=== PATIENT | female | born 1995 | race Caucasian/White ===

== ENCOUNTER 2017-10-19 19:02 | Emergency (ER) | payer MEDICAID ==
[2017-10-19] MEDS ORDERED: NS 1,000 ML IV ONE (19:28)
[2017-10-19 20:00] LABS: % IMMATURE GRANULYOCYTES 0.4 % (0.0-1.1); ABSOLUTE IMMATURE GRANULOCYTES 0.04 10^3/uL (0.00-0.10); ADD DIFF? NO; ADD MORPH? NO; ADD SCAN? NO; ATYPICAL LYMPHOCYTE FLAG 10 (0-99); FRAGMENT RBC FLAG 0 (0-99); HEMATOCRIT 39.3 % (38.0-47.0); HEMOGLOBIN 13.5 g/dL (12.6-16.3); LEFT SHIFT FLG 0 (0-99); LIPEMIA HEMOLYSIS FLAG 90 (0-99); MEAN CELL HEMOGLOBIN 30.8 pg (27.9-34.1); MEAN CELL HEMOGLOBIN CONCENTR. 34.4 g/dL (32.4-36.7); MEAN CELL VOLUME 89.5 fL (81.5-99.8); MEAN PLATELET VOLUME 10.4 fL (8.7-11.7); PLATELET CLUMPS FLAG 0 (0-99); PLATELET COUNT 246 10^3/uL (150-400); RED BLOOD CELL COUNT 4.39 10^6/uL (4.18-5.33); RED CELL DISTRIBUTION WIDTH 12.5 % (11.5-15.2)
[2017-10-19 20:17] LABS: ANION GAP 12 mEq/L (8-16); CALCIUM 9.6 mg/dL (8.5-10.4); CARBON DIOXIDE 26 mEq/l (22-31); CHLORIDE 101 mEq/L (97-110); CREATININE 0.9 mg/dL (0.6-1.0); GLOMERULAR FILTRATION RATE > 60; GLUCOSE 94 mg/dL (70-100); POTASSIUM 4.1 mEq/L (3.5-5.2); SODIUM 139 mEq/L (134-144)
--- NOTE | 2017-10-19 20:41 | CPEKG ---
Heart Rate: 79 RR Interval: 759 P-R Interval: 160 QRSD Interval: 96 QT Interval: 404 QTC Interval: 464 P [place]: 18 QRS [place]: 80 T Wave [place]: -17 EKG Severity - BORDERLINE ECG - EKG Impression: SINUS RHYTHM EKG Impression: BORDERLINE T ABNORMALITIES, INFERIOR LEADS Electronically Signed By: Gary Putnam 21-Oct-2017 05:33:28
[2017-10-19] MEDS ORDERED: BENZONATATE 100 MG CAP PO ONE (21:02)
[2017-10-19] MEDS ORDERED: AZITHROMYCIN 250 MG TAB PO ONE (21:02)
--- NOTE | 2017-10-19 21:06 | EDPHY ---
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 She reports body aches, dry cough, sore throat and fatigue. She has no history of lung disease. She has been eating and drinking normally. She does note that last weekend she accidentally tripped and had her head tub. She was ambulatory at the scene and divide any LOC. She denies neck pain. She does report a mild headache but it waxes and wanes and is not the worst of her life. She denies any chest pain , shortness of breath, palpitations. Modifying Factors: [id number] remedies without relief Comment: ROS: see HPI Constitutional: No fever, no chills, no weight loss Eyes: No blurred vision Respiratory: No shortness of breath, no cough Cardiovascular: No chest pain Gastrointestinal: No nausea, no vomiting, no diarrhea Genitourinary: No dysuria Extremities: No myalgias Neurologic: No weakness, no numbness Skin: No rashes Hematologic: No bruising, no bleeding MEDICAL/SURGICAL/SOCIAL HISTORY: Medical history:endocarditis Surgical history: heart valvuloplasty in 2005 Social history: Employed as a school operations manager. CONSTITUTIONAL: Pleasant well-appearing young adult white female, awake and alert, no obvious distress HEENT: Atraumatic and normocephalic, PERRL, EOMI. Tympanic membranes clear. Oropharynx clear, no exudate and moist pink mucosa. Airway patent. No lymphadenopathy. No meningismus. Cardiovascular: Normal S1/S2, regular rate, regular rhythm, with systolic 4/6 murmur. no rub or gallop. PULMONARY/CHEST: Symmetrical and nontender. Clear to auscultation bilaterally. Good air movement. No accessory muscle usage. ABDOMEN: Soft, nondistended, nontender, no rebound, no guarding, no peritoneal signs, no masses or organomegaly. No CVAT. EXTREMITIES: 2/2 pulses, strength 5/5, no deformities, no clubbing, no cyanosis or edema. NEUROLOGICAL: no focal neuro deficits. GCS 15. SKIN: Warm and dry, no erythema. no rash. Good capillary refill. Source: Patient Exam Limitations: No limitations - Personal History LMP (Females 10-55): 8-14 Days Ago Current Tetanus/Diphtheria Vaccine: Yes Current Tetanus Diphtheria and Acellular Pertussis (TDAP): Yes - Medical/Surgical History Hx Asthma: No Hx Chronic Respiratory Disease: No Hx Diabetes: No Hx Cardiac Disease: No Hx Renal Disease: No Hx Cirrhosis: No Hx Alcoholism: No Hx HIV/AIDS: No Hx Splenectomy or Spleen Trauma: No Other PMH: heart valvuloplasty in 2005. endocarditis - Social History Smoking Status: Current some day smoker Constitutional: Initial Vital Signs Temperature (C) 37 C 10/19/17 19:10 Heart Rate 90 10/19/17 19:10 Respiratory Rate 18 10/19/17 19:10 Blood Pressure 124/66 H 10/19/17 19:10 O2 Sat (%) 97 10/19/17 19:10 O2 Delivery Mode Room Air Allergies/Adverse Reactions: benzoyl peroxide Allergy (Verified 10/19/17 19:09) Home Medications: Medication Instructions Recorded ACCUTANE 10/19/17 AZITHROMYCIN [Z-PACK] 250 mg PO DAILY #6 tab 10/19/17 Benzonatate [Tessalon Pearles (RX)] 100 mg PO Q6 PRN #20 cap 10/19/17 Cyclobenzaprine 10Mg Prepack#3 1 btl TAKEHOME Q8 PRN #1 btl 10/19/17 [Flexeril 10 mg Prepack#3] Medical Decision Making ED Course/Re-evaluation: Labs, IV fluids, oral medications ordered Given 1 L normal saline, Tessalon Perles Afebrile and no signs of sepsis No hypoxia/respiratory distress/wheezing. Patient was offered a chest x-ray and she politely declined due to concerns of radiation. Labs reviewed and show minimal leukocytosis. Influenza and strep are negative. Due to symptoms persisting greater than 10 days; started on antibiotic. Differential Diagnosis: Differential diagnosis includes but is not limited to upper respiratory infection, bronchitis, pneumonia, sepsis, influenza, viral syndrome. - Data Points Laboratory Results: Laboratory Results 10/19/17 19:47 10/19/17 19:47 10/19/17 10/19/17 10/19/17 Unknown 19:47 19:47 WBC RBC Hgb Hct MCV MCH MCHC RDW Plt Count MPV Neut % (Auto) Lymph % (Auto) [place] % (Auto) Eos % (Auto) Baso % (Auto) Nucleat RBC Rel Count Absolute Neuts (auto) Absolute Lymphs (auto) Absolute Monos (auto) Absolute Eos (auto) Absolute Basos (auto) Absolute Nucleated RBC Immature Gran % Immature Gran # Sodium 139 mEq/L mEq/L (134-144) Potassium 4.1 mEq/L mEq/L (3.5-5.2) Chloride 101 mEq/L mEq/L (97-110) Carbon Dioxide 26 mEq/l mEq/l (22-31) Anion Gap 12 mEq/L mEq/L (8-16) BUN 13 mg/dL mg/dL (7-23) Creatinine 0.9 mg/dL mg/dL (0.6-1.0) Estimated GFR > 60 Glucose 94 mg/dL mg/dL (70-100) Calcium 9.6 mg/dL mg/dL (8.5-10.4) Beta HCG, Qual NEGATIVE Nasal Influenza A PCR Nasal Influenza B PCR Group A Strep Screen Group A Strep DNA Pending 10/19/17 10/19/17 10/19/17 19:47 19:47 19:36 WBC 10.02 10^3/uL H 10^3/uL (3.80-9.50) RBC 4.39 10^6/uL 10^6/uL (4.18-5.33) Hgb 13.5 g/dL g/dL (12.6-16.3) Hct 39.3 % % (38.0-47.0) MCV 89.5 fL fL (81.5-99.8) MCH 30.8 pg pg (27.9-34.1) MCHC 34.4 g/dL g/dL (32.4-36.7) RDW 12.5 % % (11.5-15.2) Plt Count 246 10^3/uL 10^3/uL (150-400) MPV 10.4 fL fL (8.7-11.7) Neut % (Auto) 79.2 % H % (39.3-74.2) Lymph % (Auto) 9.7 % L % (15.0-45.0) [place] % (Auto) 8.5 % % (4.5-13.0) Eos % (Auto) 1.8 % % (0.6-7.6) Baso % (Auto) 0.4 % % (0.3-1.7) Nucleat RBC Rel Count 0.0 % % (0.0-0.2) Absolute Neuts (auto) 7.94 10^3/uL H 10^3/uL (1.70-6.50) Absolute Lymphs (auto) 0.97 10^3/uL L 10^3/uL (1.00-3.00) Absolute Monos (auto) 0.85 10^3/uL H 10^3/uL (0.30-0.80) Absolute Eos (auto) 0.18 10^3/uL 10^3/uL (0.03-0.40) Absolute Basos (auto) 0.04 10^3/uL 10^3/uL (0.02-0.10) Absolute Nucleated RBC 0.00 10^3/uL 10^3/uL (0-0.01) Immature Gran % 0.4 % % (0.0-1.1) Immature Gran # 0.04 10^3/uL 10^3/uL (0.00-0.10) Sodium Potassium Chloride Carbon Dioxide Anion Gap BUN Creatinine Estimated GFR Glucose Calcium Beta HCG, Qual Nasal Influenza A PCR NEGATIVE FOR FLU A (NEGATIVE) Nasal Influenza B PCR NEGATIVE FOR FLU B (NEGATIVE) Group A Strep Screen NEGATIVE (NEGATIVE) Group A Strep DNA Medications Given: Discontinued Medications Sodium Chloride (Ns) 1,000 mls @ 0 mls/hr IV EDNOW ONE; Wide Open PRN Reason: Protocol Stop: 10/19/17 19:29 Last Admin: 10/19/17 19:49 Dose: 1,000 mls Departure - Departure Disposition: Home, Routine, Self-Care Clinical Impression: Bronchitis Condition: Good Instructions: Acute Bronchitis (ED) Additional Instructions: Please take all of the antibiotic until complete. Use Tessalon Perles every 6 hr as needed for your cough. You may use Flexeril 3 times a day as needed for muscle spasm. Drink plenty of fluids and rest as much as possible. Referrals: SE ANGUIANO [Other] - As per Instructions Prescriptions: AZITHROMYCIN [Z-PACK] 250 mg PO DAILY #6 tab Benzonatate [Tessalon Pearles (RX)] 100 mg PO Q6 PRN #20 cap PRN Reason: Cough, Moderate Cyclobenzaprine 10Mg Prepack#3 [Flexeril 10 mg Prepack#3] 1 btl TAKEHOME Q8 PRN #1 btl PRN Reason: Spasms
[2017-10-19] MEDS ORDERED: CYCLOBENZAPRINE 10MG PREPACK#3 BTL TAKEHOME ONE (21:09)
[2017-10-19 21:33] VITALS: BP 127/82; PULSE 76; RESP 17; TEMP 98.2; O2SAT 98
== END 2017-10-19 21:30 | disposition home or self-care (01) ==
DX: J20.9 Acute bronchitis, unspecified (principal); E86.9 Volume depletion, unspecified; F17.200 Nicotine dependence, unspecified, uncomplicated

== ENCOUNTER 2018-12-19 19:14 | Emergency (ER) | payer MEDICAID ==
--- NOTE | 2018-12-19 19:32 | EDPHY ---
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 endocarditis. heart murmur - Social History Smoking Status: Never smoked Constitutional: Initial Vital Signs Temperature (C) 36.7 C 12/19/18 19:18 Heart Rate 106 H 12/19/18 19:18 Respiratory Rate 16 12/19/18 19:18 Blood Pressure 115/72 12/19/18 19:18 O2 Sat (%) 98 12/19/18 19:18 O2 Delivery Mode Room Air Allergies/Adverse Reactions: benzoyl peroxide Allergy (Verified 07/04/18 22:17) Home Medications: Medication Instructions Recorded ACCUTANE 10/19/17 Iud 07/04/18 Omeprazole 20 mg PO DAILY #30 capsule. 07/04/18 Aspirin 81mg (*) 12/19/18 Enalapril Maleate 12/19/18 Warfarin Sodium 12/19/18 Medical Decision Making ED Course/Re-evaluation: CHIEF COMPLAINT: Back pain HISTORY OF PRESENT ILLNESS: The patient is an anticoagulated (Warfarin) 23 y/o female with a history of aortic valve replacement (11/22/18), aortic stent (12/12/18), and endocarditis complaining of feeling dizzy, nauseous, and short of breath since arriving back in [place]. 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 On 11/22/17 she had an [place] surgery at [facility] which involved harvesting tissue from her pericardium to make an aortic valve replacement. They did this procedure as her watch commander became concerned that she would develop cardiomegaly. On 12/12/18 she had an aortic stent placed as she had a high pressure gradient. Immediately after the procedure on 12/12 she developed a left back point tenderness. Her physicians did an x-ray and had no significant findings. She did not have any CT findings. They thought the pain as due to the where the stent was placed. This pain is most prominent at night or while walking. She returned home and started to feel nauseous, dizzy, and winded. Around one week ago she started taking Enalapril for her blood pressure. Last night she developed a rash on her chest and back. Due to the combination of symptoms she decided to present to her emergency department. No fever, chest pain, abdominal pain, urinary or bowel complaints, numbness, paresthesias. REVIEW OF SYSTEMS: A comprehensive 10 system review of systems is otherwise negative aside from elements mentioned in the history of present illness and medical decision making. PHYSICAL EXAM: HR, BP, O2 Sat, RR. Temp noted General Appearance: Alert, well hydrated, appropriate, and non-toxic appearing. Head: Atraumatic without scalp tenderness or obvious injury Eyes: Pupils equal, round, reactive to light and accommodation, EOMI, no trauma , no injection. Ears: Clear bilaterally, no perforation, normal landmarks Nose: Atraumatic, no rhinorrhea, clear. Throat: There is no erythema or exudates, no lesions, normal tonsils, mucus membranes moist. Neck: Supple, 2+ carotid upstroke, nontender, no lymphadenopathy. Respiratory: No retractions, no distress, no wheezes, and no accessory muscle use. Lungs are clear to auscultation bilaterally. Cardiovascular: Regular rate and rhythm, no murmurs, rubs, or gallops. Bilateral carotid, radial, dorsalis pedis, and posterior tibial pulses intact. Good capillary refill all extremities. Gastrointestinal: Abdomen is soft, nontender, non-distended, no masses, no rebound, no guarding, no peritoneal signs. Musculoskeletal: Normal active ROM of all extremities, atraumatic. Neurological: Alert, appropriate, and interactive. The patient has normal DTRs and non-focal cranial nerves, motor, sensory, and cerebellar exam. Skin: Macular rash on trunk, good turgor, no nodules on palpation. Past medical history: Endocarditis Past surgical history: Aortic valve replacement (11/22/18), aortic stent () Family history: Denies Social history: Friend at bedside, lives in [place], employed at [employer] DIAGNOSTICS/PROCEDURES/CRITICAL CARE TIME: EKG: The 12 lead EKG was interpreted by myself as sinus rhythm with a rate of 96 , abnormal T wave. See hard copy and/or "tracemaster" electronic copy for interpretation. Chest CTA: No acute findings DIFFERENTIAL DIAGNOSIS: The differential diagnosis for the patient's back pain included but was not limited to musculoskeletal pain, epidural abscess, herniated disk, spinal fracture, and intra-abdominal causes including urinary system. MEDICAL DECISION MAKING: The patient is an anticoagulated (Warfarin) 23 y/o female with a history of aortic valve replacement (11/22/18), aortic stent (12/12/18), and endocarditis presenting with feeling dizzy, nauseous, and short of breath since arriving back in [place]. I am unable to reproduce her left thoracic back pain. She does have a macular rash on her trunk. Due to her extensive cardiac history labs , EKG and chest CTA ordered. 1928: I interpreted patient's EKG as sinus rhythm with a rate of 96, abnormal T wave. 2001: Patient is subtherapeutic on her Warfarin. She has a normal creatinine and is not ; okay to proceed with chest CTA. 2044: I spoke with the radiologist who reports that the chest CTA is unremarkable. 2047: Reassessed patient and discussed laboratory and imaging studies. I have advised her to call her physician with regards to tonight's visit as well as her rash. Return precautions provided; patient is comfortable with this plan. - Data Points Laboratory Results: Laboratory Results 12/19/18 19:38 12/19/18 19:38 12/19/18 12/19/18 12/19/18 19:38 19:38 19:38 WBC RBC Hgb Hct MCV MCH MCHC RDW Plt Count MPV Neut % (Auto) Lymph % (Auto) [place] % (Auto) Eos % (Auto) Baso % (Auto) Nucleat RBC Rel Count Absolute Neuts (auto) Absolute Lymphs (auto) Absolute Monos (auto) Absolute Eos (auto) Absolute Basos (auto) Absolute Nucleated RBC Immature Gran % Immature Gran # PT 16.0 SEC H SEC (12.0-15.0) INR 1.26 H (0.83-1.16) APTT 31.5 SEC SEC (23.0-38.0) Sodium 134 mEq/L L mEq/L (135-145) Potassium 3.9 mEq/L mEq/L (3.5-5.2) Chloride 104 mEq/L mEq/L (97-110) Carbon Dioxide 20 mEq/l L mEq/l (22-31) Anion Gap 10 mEq/L mEq/L (6-14) BUN 21 mg/dL mg/dL (7-23) Creatinine 0.9 mg/dL mg/dL (0.6-1.0) Estimated GFR > 60 Glucose 93 mg/dL mg/dL (70-100) Calcium 8.8 mg/dL mg/dL (8.5-10.4) Beta HCG, Qual NEGATIVE 12/19/18 19:38 WBC 7.49 10^3/uL 10^3/uL (3.80-9.50) RBC 3.90 10^6/uL L 10^6/uL (4.18-5.33) Hgb 10.4 g/dL L g/dL (12.6-16.3) Hct 33.0 % L % (38.0-47.0) MCV 84.6 fL fL (81.5-99.8) MCH 26.7 pg L pg (27.9-34.1) MCHC 31.5 g/dL L g/dL (32.4-36.7) RDW 16.4 % H % (11.5-15.2) Plt Count 242 10^3/uL 10^3/uL (150-400) MPV 11.9 fL H fL (8.7-11.7) Neut % (Auto) 62.5 % % (39.3-74.2) Lymph % (Auto) 20.0 % % (15.0-45.0) [place] % (Auto) 7.2 % % (4.5-13.0) Eos % (Auto) 9.1 % H % (0.6-7.6) Baso % (Auto) 0.8 % % (0.3-1.7) Nucleat RBC Rel Count 0.0 % % (0.0-0.2) Absolute Neuts (auto) 4.68 10^3/uL 10^3/uL (1.70-6.50) Absolute Lymphs (auto) 1.50 10^3/uL 10^3/uL (1.00-3.00) Absolute Monos (auto) 0.54 10^3/uL 10^3/uL (0.30-0.80) Absolute Eos (auto) 0.68 10^3/uL H 10^3/uL (0.03-0.40) Absolute Basos (auto) 0.06 10^3/uL 10^3/uL (0.02-0.10) Absolute Nucleated RBC 0.00 10^3/uL 10^3/uL (0-0.01) Immature Gran % 0.4 % % (0.0-1.1) Immature Gran # 0.03 10^3/uL 10^3/uL (0.00-0.10) PT INR APTT Sodium Potassium Chloride Carbon Dioxide Anion Gap BUN Creatinine Estimated GFR Glucose Calcium Beta HCG, Qual Departure - Departure Disposition: Home, Routine, Self-Care Clinical Impression: Rash Back pain Qualifiers: Back pain location: thoracic back pain Chronicity: acute Back pain laterality: left Qualified Code(s): M54.6 - Pain in thoracic spine Condition: Good Instructions: Acute Rash (ED), Back Pain (ED) Additional Instructions: 1. Your rash could be due to the blood pressure medication. Skip tonight's dose and talk to your physician tomorrow to see if you should continue or change this. 2. Return to the emergency department for severe pain, fever, numbness, difficulty walking, change in location or nature of pain or other concerns. Referrals: Dasia Barnes MD [Medical Doctor] - As per Instructions Dena Biggs MD [Medical Doctor] - As per Instructions Report Scribed for: Durga Fernández Report Scribed by: Tania Ramsay Date of Report: 12/19/18 Time of Report: 19:33
[2018-12-19 19:49] LABS: PLATELET COUNT 242 10^3/uL (150-400)
[2018-12-19] MEDS ORDERED: IOHEXOL 300 mgI/ML (OMNIPAQUE) 150 ML BTL IV ONE (19:53)
[2018-12-19 19:57] LABS: INR 1.26 (0.83-1.16)
[2018-12-19 21:01] VITALS: BP 106/71
== END 2018-12-19 21:28 | disposition home or self-care (01) ==
DX: R42 Dizziness and giddiness (principal); M54.6 Pain in thoracic spine; R21 Rash and other nonspecific skin eruption; Z95.2 Presence of prosthetic heart valve; Z79.01 Long term (current) use of anticoagulants
CPT/HCPCS: Q9967

== ENCOUNTER 2019-01-16 21:14 | Emergency (ER) | payer MEDICAID ==
[2019-01-16] MEDS ORDERED: HYDROmorphONE/DILAUDID 2 MG/ML INJ IVP ONE (22:09)
--- NOTE | 2019-01-16 22:09 | EDPHY ---
H & P Stated Complaint: Hurts to breathe, cough/sneezing, cardiac surg x2 months ago, aortic valve Source: Patient Exam Limitations: No limitations - Personal History Current Tetanus Diphtheria and Acellular Pertussis (TDAP): Yes - Medical/Surgical History Hx Asthma: No Hx Chronic Respiratory Disease: No Hx Diabetes: No Hx Cardiac Disease: Yes Hx Renal Disease: No Hx Cirrhosis: No Hx Alcoholism: No Hx HIV/AIDS: No Hx Splenectomy or Spleen Trauma: No Other PMH: heart valvuloplasty in 2005. endocarditis. heart murmur. aortic valve replacement November 2018, aortic anuersym repair - Family History Significant Family History: No pertinent family hx - Social History Smoking Status: Never smoked Alcohol Use: None Time Seen by Provider: 01/16/19 21:53 HPI/ROS: CHIEF COMPLAINT: Pleuritic chest pain HISTORY OF PRESENT ILLNESS: The patient is a 23-year-old female with a history of aortic stenosis repaired as a child and aortic valve repair 2 months ago at [facility] in [place]. She was discovered intraoperatively to have an aortic aneurysm which was then stented 1 week later. She was started on Coumadin postoperatively because she is high risk for DVT and PE. She states that she was doing well until about a week ago when she developed a cough fever and sore throat as well as runny nose. She is him that it was the flu although she did get a flu vaccine this year. She states that the fever and body aches and sore throat have improved however she still has pleuritic chest pain primarily in the left lateral side. She states that she has also sneezing frequently. She is concerned about PE versus pneumonia. She has been taking her Coumadin faithfully. She also would like to avoid CT scan of possible could she had one 2 months ago. She also reports that she has had endocarditis in the past but this does not feel similar. Severity: Moderate Modifying factors: Worsened with deep inspiration, worsened with recumbent position. REVIEW OF SYSTEMS: Constitutional: denies: chills, fever, recent illness, recent injury EENTM: denies: blurred vision, double vision, nose congestion Respiratory: denies: cough, shortness of breath Cardiac: See HPI Gastrointestinal/Abdominal: denies: abdominal pain, diarrhea, nausea, vomiting, blood streaked stools Genitourinary: denies: dysuria, frequency, hematuria, pain Musculoskeletal: denies: joint pain, muscle pain Skin: denies: lesions, rash, jaundice, bruising Neurological: denies: headache, numbness, paresthesia, tingling, dizziness, weakness Hematologic/Lymphatic: denies: blood clots, easy bleeding, easy bruising Immunologic/allergic: denies: HIV/AIDS, transplant 10 systems reviewed and negative except as noted EXAM: GENERAL: Well-appearing, well-nourished and in no acute distress. HEAD: Atraumatic, normocephalic. EYES: Pupils equal round and reactive to light, extraocular movements intact, sclera anicteric, conjunctiva are normal. ENT: TMs normal, nares patent, oropharynx clear without exudates. Moist mucous membranes. NECK: Normal range of motion, supple without lymphadenopathy or JVD. LUNGS: Breath sounds clear to auscultation bilaterally and equal. No wheezes rales or rhonchi. HEART: Regular rate and rhythm [place], without murmurs, rubs or gallops. ABDOMEN: Soft, nontender, normoactive bowel sounds. No guarding, no rebound. No masses appreciated. BACK: No CVA tenderness, no spinal tenderness, step-offs or deformities EXTREMITIES: Normal range of motion, no pitting or edema. No clubbing or cyanosis. NEUROLOGICAL: Cranial nerves II through XII grossly intact. Normal speech, normal gait. 5/5 strength, normal movement in all extremities, normal sensation , normal reflexes PSYCH: Normal mood, normal affect. SKIN: Warm, dry, normal turgor, no visible rashes or lesions. (Abiodun Medrano) Constitutional: Initial Vital Signs Temperature (C) 37.2 C 01/16/19 21:17 Heart Rate 97 01/16/19 21:17 Respiratory Rate 18 01/16/19 21:17 Blood Pressure 119/71 01/16/19 21:17 O2 Sat (%) 100 01/16/19 21:17 O2 Delivery Mode Room Air Allergies/Adverse Reactions: benzoyl peroxide Allergy (Verified 01/16/19 21:17) Home Medications: Medication Instructions Recorded Iud 07/04/18 Aspirin 81mg (*) 12/19/18 Warfarin Sodium 12/19/18 Medical Decision Making - Diagnostics Imaging: Discussed imaging studies w/ fisher scallop Radiologist - Diagnostics EKG Interpretation: An EKG obtained and was read and documented in trace view. Please see trace view for full reading and report. Sinus rhythm T-wave inversion in anterior leads similar to previous (Abiodun Medrano) ED Course/Re-evaluation: Echocardiogram was called to me at 12:[address] Goldberg. This is unremarkable echocardiogram, no evidence of pericardial effusion, no valvular abnormality or wall motion abnormality seen on echocardiogram. This was called to me by Dr. Goldberg. (Galindo Alvarez) Patient's D-dimer is positive. We had a discussion about CT scan. Is had to repeat CT scan. She had 1 last month for back pain in the setting of her recent aortic stent that was normal. We did discussed possibly doing a V/Q scan but this would need to wait till tomorrow and she need to be admitted to the hospital. She declines this. 11:[address] is reassuring. Pending echo results. Care transferred to Dr. Alvarez. (Abiodun Medrano) Differential Diagnosis: Partial list of the Differential diagnosis considered include but were not limited to; pleurisy, pericarditis, costochondritis and although unlikely based on the history and physical exam, I also considered PE, pneumonia, acute coronary disease, endocarditis, myocarditis, ischemia, dissection. (Abiodun Medrano) - Data Points Laboratory Results: Laboratory Results 01/16/19 21:30 01/16/19 21:30 Medications Given: Discontinued Medications Aspirin (Aspirin) 81 mg PO EDNOW ONE Stop: 01/16/19 22:33 Last Admin: 01/16/19 22:36 Dose: 81 mg Hydromorphone HCl (Dilaudid) 0.5 mg IVP EDNOW ONE Stop: 01/16/19 22:10 Last Admin: 01/16/19 22:20 Dose: 0.5 mg Warfarin Sodium (Coumadin) 5 mg PO EDNOW ONE Stop: 01/16/19 22:46 Last Admin: 01/16/19 22:57 Dose: 5 mg Warfarin Sodium (Coumadin) 2 mg PO EDNOW ONE Stop: 01/16/19 23:01 Last Admin: 01/16/19 22:57 Dose: 2 mg Point of Care Test Results: Chemistry 01/16/19 21:34 POC Troponin I 0.01 ng/mL ng/mL (0.00-0.08) Departure - Departure Disposition: Home, Routine, Self-Care Clinical Impression: Pleurisy Condition: Good Instructions: Pleurisy (ED) Additional Instructions: 1. Please return to the emergency room if you have worsening symptoms includes worsening pain, not doing well not feeling well. Referrals: Keanu Cazares MD [Primary Care Provider] - As per Instructions Gordon Goldberg MD [Medical Doctor] - As per Instructions Stand Alone Forms: Work Excuse
[2019-01-16] MEDS ORDERED: HYDROmorphONE/DILAUDID 1 MG/ML INJ ONE (22:12)
[2019-01-16 22:16] LABS: PLATELET COUNT 272 10^3/uL (150-400)
[2019-01-16 22:21] LABS: INR 1.59 (0.83-1.16); PROTIME(PATIENT) 18.2 SEC (12.0-15.0)
--- NOTE | 2019-01-16 22:21 | CPEKG ---
Test Reason : OPEN Blood Pressure : / mmHG Vent. Rate : 083 BPM Atrial Rate : 084 BPM P-R Int : 155 ms QRS Dur : 105 ms QT Int : 419 ms P-R-T Axes : 029 073 016 degrees QTc Int : 493 ms Sinus rhythm Nonspecific T abnormalities, anterior leads Borderline prolonged QT interval Confirmed by Abiodun Medrano ([id number]) on 01/16/2019 10:20:38 PM Referred By: PHYSICIAN ED Confirmed By:Abiodun Medrano
[2019-01-16] MEDS ORDERED: ASPIRIN 81 MG CHEWABLE TAB PO ONE (22:32)
[2019-01-16] MEDS ORDERED: WARFARIN SODIUM 7.5 MG TAB PO ONE (22:32)
[2019-01-16] MEDS ORDERED: IOPAMIDOL (ISOVUE 370) 100 ML BTL IV ONE (22:41)
[2019-01-16] MEDS ORDERED: WARFARIN SODIUM 5 MG TAB PO ONE (22:45)
[2019-01-16] MEDS ORDERED: WARFARIN SODIUM 2 MG TAB PO ONE (23:00)
[2019-01-17 00:39] VITALS: BP 120/86
--- NOTE | 2019-01-17 14:21 | ECHO ---
[email or web address] [address] [address] Main: [phone] Echocardiography Examination Transthoracic Name: ANTHONY SHELL MR#: Study Date: 01/16/2019 Study Time: 11:02 PM Date of : 1995 Age: 23 year(s) Height: 170.2 cm (67 in.) Weight: 68.04 kg (150 lb.) BSA: 1.79 m2 Gender: Female Examination: Echo Contrast: Image Quality: Adequate Rhythm: Heart Rate: 74 bpm BP: 118 mmHg/86 mmHg Indication: Rule out pericarditis, Chest Pain Procedure Staff Referring Physician: Tire Rep[employer] Mechanic: Ana Loja [facility] Reading Physician: Thompson Yusuf MD Requesting Provider: Indication: Rule out pericarditis, Chest Pain Measurements Chambers AV/MV Label Value Normal Value Label Value Normal Value EF lower range (%) 55 % AV Opening, MM 1.8 cm EF upper range (%) 60 % AV PGmax 13 mmHg IVSd, 2D 1 cm (0.6cm - 1.1cm) AV PGmean 8 mmHg LVDd, 2D 5 cm (3.9cm - 5.3cm) AV Vmax, Caliper 1.83 m/s LVDs, 2D 3.3 cm (2.1cm - 4cm) RASHMI (continuity eq. 2 cm2 LVEF, 2D 64 % (54% - 74%) Vmax) LVEF, MOD4 54 % (55% - 70%) RASHMI D (continuity eq. 2.2 cm2 LVOT PGmax 5 mmHg VTI) LVOT PGmean 3 mmHg MV A Vmax 0.48 m/s LVOT Vmax 1.08 m/s (0.7m/s - 1.1m/s) MV DT 180 ms LVOT Vmean 0.74 m/s MV E' lateral 0.17 m/s LVOTd 2.1 cm (1.8cm - 2cm) MV E' mean 0.13 m/s LVPWd, 2D 1 cm MV E' septal 0.09 m/s RVDd, 2D 2.9 cm (1.9cm - 3.8cm) MV E Vmax 0.9 m/s LADs, 2D 3.5 cm (2.7cm - 3.8cm) MV E/A 1.88 LAESV index, MOD2 26.3 ml/m2 MV E/E' lateral 5.4 Additional Vessels MV E/E' mean 6.92 Label Value Normal Value MV E/E' septal 10.2 (0.6 - 2.6) AoAsc 2.3 cm MV PGmax 5 mmHg AoRoot, 2D 2.4 cm (1.4cm - 2.6cm) MV PGmean 2 mmHg Patient: ANTHONY SHELL MRN: Study Date: 01/16/2019 Page 1 of 3 11:02 PM IVC 1.3 cm (1.2cm - 2.3cm) MV PHT 0.05 s MV PHT 49 ms MV VTI 24.7 cm MVA D (continuity eq.) 2.9 cm2 MVA PHT 4.5 cm2 TV/PV Label Value Normal Value RA Pressure 5 mmHg RVSP 20 mmHg TR Pmax 15 mmHg TR Vmax 1.91 m/s PV PGmax 3 mmHg PV Vmax, Caliper 0.87 m/s (0.6m/s - 0.9m/s) Conclusions A cause for the patient's chest discomfort is not identified on the basis of the current study. There is no evidence of a pericardial effusion. Left Ventricle: Left ventricle is normal in size. Normal global systolic left ventricular function. EF range is estimated at 55 % - 60 %. Left ventricular diastolic function parameters are normal. Right Ventricle: Normal size right ventricle. Mitral Valve: Mitral valve appears structurally normal. Mild to moderate mitral regurgitation. Tricuspid Valve: Tricuspid valve leaflets are structurally normal. Right Ventricular systolic pressure is measured at 20 mmHg. 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 There is no 2D or Doppler flow evidence of obstruction. Findings Left Ventricle: Left ventricle is normal in size. Normal global systolic left ventricular function. The ejection fraction, measured by MOD4, is 54 %. EF range is estimated at 55 % - 60 %. Left ventricle wall thickness is normal. Left ventricular diastolic function parameters are normal. IVS: The septum is intact. Right Ventricle: Normal size right ventricle. Right ventricular wall thickness is normal. Right ventricular systolic function is normal. Left Atrium: The left atrium is normal in size. IAS: Normal appearing atrial septum. Patient: ANTHONY SHELL MRN: Study Date: 01/16/2019 Page 2 of 3 11:02 PM Right Atrium: The right atrium is normal in size. Mitral Valve: Mitral valve appears structurally normal. Mild to moderate mitral regurgitation. No mitral valve stenosis. Aortic Valve: Mild aortic regurgitation is present. There is no aortic stenosis. There is an aortic valve repair present. Tricuspid Valve: Tricuspid valve leaflets are structurally normal. Mild tricuspid regurgitation. No tricuspid valve stenosis. Right Ventricular systolic pressure is measured at 20 mmHg. Pulmonary artery pressure normal. Pulmonic Valve: Pulmonic leaflets are normal in appearance and function. Trivial pulmonic valve regurgitation is present. Aorta: The aorta is normal. The aortic root size in 2D measures 2.4 cm. The ascending aorta measures 2.3 cm. 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 There is no 2D or Doppler flow evidence of obstruction. Aorta Measurements AoRoot, 2D is 2.4 cm. Pulmonary Artery: The pulmonary artery morphology appears normal. IVC: The inferior vena cava is normal in size. The inferior vena cava is normal in size and course. Pericardium: No pericardial effusion. No pleural effusion present. Exam Details Procedure Ordered: Echo Procedure Status: Routine study Image Quality: Adequate Facility Location: Cardiac Echo 1 (No Signature Object) Patient: ANTHONY SHELL MRN: Study Date: 01/16/2019 Page 3 of 3 11:02 PM [id number]
== END 2019-01-17 00:38 | disposition home or self-care (01) ==
DX: R09.1 Pleurisy (principal); R79.89 Other specified abnormal findings of blood chemistry; Z79.01 Long term (current) use of anticoagulants; Z95.5 Presence of coronary angioplasty implant and graft; Z95.4 Presence of other heart-valve replacement
CPT/HCPCS: 84484-ER; 96374; J1170; Q9967